=== PATIENT | male | born 1995 | race Caucasian/White ===

== ENCOUNTER 2021-02-19 11:41 | Emergency (ER) | payer SELFPAY ==
[~2021-02-19] VITALS: Ht 170.2 cm; Wt 81.6 kg
--- NOTE | 2021-02-19 11:45 | NUR ---
PATIENT [id number] FOR WITNESSED SEIZURE AT [employer]. ASSISTED TO FLOOR. BG [employer]. PATIENT ALERT AND ORIENTED X4. O RESPIRATORY DISTRESS NOTED. RESPIRATIONS EVEN AND UNLABORED. WILL CONTINUE TO MONITOR
[2021-02-19 12:27] LABS: BASOPHILS % (AUTO) 0.3 % (0.0-2.0); HEMATOCRIT 43 % (39-51); HEMOGLOBIN 15.1 g/dL (13.5-17.5); LYMPHOCYTES # (AUTO) 0.9 K/uL (0.8-4.8); MEAN CORPUSCULAR HGB CONC 36 g/dl (31.0-36.0); MEAN CORPUSCULAR VOLUME 90 fL (80-96); MONOCYTES # (AUTO) 0.5 K/uL (0.1-1.30); MONOCYTES % (AUTO) 8.2 % (2.0-12.0); NEUTROPHILS # (AUTO) 4.4 K/uL (1.8-8.9); NEUTROPHILS % (AUTO) 75.5 % (43.0-81.0); PLATELET COUNT (AUTO) 197 K/uL (150-450); RED BLOOD CELL COUNT(AUTO) 4.72 MIL/uL (4.5-6.0); WHITE BLOOD COUNT (AUTO) 5.8 K/uL (4.3-11.0)
[2021-02-19] MEDS ORDERED: IV NS 0.9% 500 ML BAG IV ONE (12:30)
[2021-02-19] MEDS ORDERED: OXCARBAZEPINE 150 MG TABLET PO ONE ×2 (12:30→13:30)
[2021-02-19] MEDS ORDERED: OXCARBAZEPINE 150 MG TABLET ONE ×2 (12:37→13:22)
[2021-02-19 12:38] LABS: CALCIUM, SERUM 8.4 mg/dL (8.5-10.1); CREATININE 0.8 mg/dL (0.6-1.3); POTASSIUM 4.2 mmol/L (3.5-5.1)
[2021-02-19] MEDS ORDERED: OXCA600T5 PO (13:14)
[2021-02-19] MEDS ORDERED: ACETAMINOPHEN 325 MG TABLET ONE (13:46)
--- NOTE | 2021-02-19 13:49 | NUR ---
Patient discharged to home in stable condition. Written and verbal after care instructions given. Patient verbalizes understanding of instruction.IV removed. Catheter intact and site benign. Pressure and 4x4 applied to site. No bleeding noted.
[2021-02-19 13:50] VITALS: BP 136/71
[2021-02-19] MEDS ORDERED: ACETAMINOPHEN 325 MG TABLET PO ONE (14:00)
== END 2021-02-19 13:50 | disposition home or self-care (01) ==
LOC: ER 11:56
DX: R56.9 Unspecified convulsions (principal); F32.9 Major depressive disorder, single episode, unspecified; F41.9 Anxiety disorder, unspecified; Z91.14 Patient's other noncompliance with medication regimen; Z79.899 Other long term (current) drug therapy
CPT/HCPCS: 36415; 71045; 80048; 85025; 99284; J7040